=== PATIENT | male | born 1990 | race American Indian/Alaskan Native ===

== ENCOUNTER 2018-10-20 05:49 | Emergency (ER) | payer BC ==
[2018-10-20] MEDS ORDERED: Albuterol-Ipratrop 3 mg / 0.5 (3 ml) UD ONE ×2 (06:02→06:24)
--- NOTE | 2018-10-20 06:05 | C.PDOC ---
Time Seen by Provider: 10/20/18 06:05 Disposition Counseled Patient/Family Regarding: Studies Performed, Diagnosis - Disposition Disposition Time: 06:05
[2018-10-20 06:06] VITALS: TEMP 97.9
--- NOTE | 2018-10-20 06:15 | C.PDOC ---
History Of Present Illness Patient presents with wheezing. Ran out of his meds. Received [address] Speaking in complete sentences. No f/c/n/v Time Seen by Provider: 10/20/18 06:05 Chief Complaint (Nursing): Respiratory Distress History Per: Patient History/Exam Limitations: no limitations Onset/Duration Of Symptoms: Hrs Current Symptoms Are (Timing): Better Associated Symptoms: Other (wheezing) Preciptating Factors: Ran Out Of Meds Severity: Moderate Pain Scale Rating Of: 4 Recent travel outside of the [place]: No Additional History Per: Patient - Asthma History Medication Use: Ran Out Rescue Medications: See Home Medication List Control Medications: See Home Medication List Past Medical History Reviewed: Historical Data, Nursing Documentation, Vital Signs Vital Signs: Last Vital Signs Temp 97.9 F 10/20/18 06:01 Pulse 75 10/20/18 06:01 Resp 20 10/20/18 06:01 BP Pulse Ox 99 10/20/18 06:01 Primary Care Provider: Non [facility] Provider, - Medical History PMH: Asthma Family History: States: No Known Family Hx - Social History Hx Alcohol Use: Yes Hx Substance Use: No - Immunization History Hx Tetanus Toxoid Vaccination: Yes Hx Influenza Vaccination: Yes Hx Pneumococcal Vaccination: Yes Review Of Systems Constitutional: Negative for: Fever, Chills Cardiovascular: Negative for: Chest Pain Respiratory: Positive for: Cough, Wheezing Gastrointestinal: Negative for: Abdominal Pain Musculoskeletal: Negative for: Back Pain Skin: Negative for: Rash Neurological: Negative for: Weakness Psych: Negative for: Anxiety Physical Exam - Physical Exam Appears: Non-toxic, No Acute Distress Skin: Warm, Dry Oral Mucosa: Moist Chest: Symmetrical Cardiovascular: Rhythm Regular Respiratory: No Rales, No Rhonchi, Wheezing Gastrointestinal/Abdominal: Soft, No Tenderness Back: No CVA Tenderness Extremity: Normal ROM Neurological/Psych: Oriented x3 Gait: Steady ED Course And Treatment O2 Sat by Pulse Oximetry: 99 Pulse Ox Interpretation: Normal Disposition Counseled Patient/Family Regarding: Studies Performed, Diagnosis, Need For Followup, Rx Given - Disposition Referrals: [facility] [Outside] [facility] [Outside] Disposition: HOME/ ROUTINE Disposition Time: 06:13 Condition: FAIR Additional Instructions: Please return if symptoms recur Prescriptions: Albuterol HFA [Ventolin HFA 90 mcg/actuation (8 g)] 2 puff IH [id number] #1 puff Fluticasone/Salmeterol 250/50 [Advair Diskus] 1 puff IH Q12 #1 puff Prednisone [Deltasone] 20 mg PO DAILY #5 tablet Instructions: Asthma, Adult (DC) Forms: [employer] (B[place]ian) - Clinical Impression Clinical Impression: Exacerbation of asthma
[2018-10-20 06:17] VITALS: RESP 18
[2018-10-20] MEDS ORDERED: Albuterol-Ipratrop 3 mg / 0.5 (3 ml) UD IH SCH (06:30)
[2018-10-20 07:02] VITALS: BP 124/74; PULSE 79; O2SAT 94
== END 2018-10-20 07:02 | disposition home or self-care (01) ==
LOC: C.ER 05:49
DX: J45.901 Unspecified asthma with (acute) exacerbation (principal)